=== PATIENT | female | born 1970 | race Caucasian/White ===

== ENCOUNTER 2020-02-17 12:41 | Emergency (ER) | payer OTHER, SELFPAY ==
[2020-02-17 12:54] VITALS: BP 139/87; PULSE 87; RESP 18; TEMP 36.8; O2SAT 100
--- NOTE | 2020-02-17 13:15 | ED.EXTPRO ---
HPI - Extremity Problem General Chief complaint: Extremity Problem,Nontraumatic Stated complaint: Right Hand Pain Time Seen by Provider: 02/17/20 13:09 Source: patient and RN notes reviewed Mode of arrival: ambulatory Limitations: no limitations History of Present Illness HPI Narrative: Patient presents today complaining of weakness to the right hand x3-4 days. States symptoms began upon awakening one morning. Reports it felt like pins and needles initially, but this sensation has since resolved. Reports she did have some neck pain when symptoms began, but this has since resolved. She denies any numbness or tingling in the arm or hand. Denies pain in the neck, arm, or hand. No pain with range of motion. She has tried no [id number] interventions prior to arrival. Denies injury or trauma. MD Complaint: other (Hand weakness) Related Data Allergies Allergy/AdvReac Type Severity Reaction Status Date / Time No Known Allergies Allergy Verified 02/17/20 12:58 Review of Systems Review of Systems: Narrative: CONSTITUTIONAL: Denies body aches, fever, chills, or sweats. EYES: Denies visual changes, redness, or discharge. ENT: Denies rhinorrhea, congestion, sore throat, or otalgia. CARDIOVASCULAR: Denies chest pain, palpitations, or edema. RESPIRATORY: Denies cough or dyspnea. GASTROINTESTINAL: Denies abdominal pain, nausea, vomiting, or diarrhea. GENITOURINARY: Denies dysuria or hematuria. SKIN: Denies rash, itching, or wounds. MUSCULOSKELETAL: Denies back pain, joint pain, or myalgia.+ Right hand weakness NEUROLOGIC: Denies headache, numbness, tingling, dizziness, or lightheadedness. PSYCH: Denies depression or anxiety. [facility] Family History Family History (Updated 01/22/16 @ 23:19 by DOCTOR UNKNOWN) Mother Family history of mental disorder Hypertension Family history of malignant neoplasm of cervix Family history of malignant neoplasm of breast in first degree relative Sibling Hypertension Family history of malignant neoplasm of breast in first degree relative Father Family history of diabetes mellitus in first degree relative Family history of coronary artery disease Social History Social History Smoking status: Never smoker Alcohol intake: current Gender identity (if verbalized by the patient): Female Comments At time of signature, I have reviewed and agree with nursing past medical, surgical, social and family history unless otherwise noted. Please see nursing chart for further information. There is no relevant family history pertinent to the presenting complaint Exam Narrative: Exam Narrative: GENERAL: Well-appearing, well-nourished, and in no acute distress. HEAD: Normocephalic, atraumatic. EYES: EOMI. No redness or drainage. Conjunctivae normal. ENT: Mucous membranes pink and moist. Tongue and lips symmetrical. Eyebrows symmetrical. NECK: Normal AROM. Supple. No lymphadenopathy. Neck is nontender. Chin to chest normal. CHEST: No respiratory distress. Clear to auscultation. HEART: Regular rate and rhythm. No murmur appreciated. Normal peripheral pulses. ABDOMEN: Soft, nontender, nondistended, normal active bowel sounds. MUSCULOSKELETAL: No bony tenderness. EXTREMITIES: Normal AROM and strength of bilateral shoulders, elbows, and wrists are normal. 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 Distal sensation intact. Capillary refill normal. Radial pulses normal. Color normal. SKIN: Warm, dry, no rash. Capillary refill normal. Normal skin turgor. NEURO: Alert and oriented x3. Gait steady. No facial droop. No pronator drift. PSYCH: Normal affect. No signs of depression or anxiety. Course Vital Signs Vital signs: Vital Signs Temperature 98.3 F 02/17/20 12:54 Pulse Rate 87 02/17/20 12:54 Respiratory Rate 18 02/17/20 12:54 Blood Pressure 139/87 02/17/20 12:54 Pulse Oximetry 100 02/17/20 12:54 Temperature 98.3 F 02/17/20 12:54 Pulse Rate
== END 2020-02-17 13:20 | disposition home or self-care (01) ==
PROVIDERS: Emergency Provider Nurse Practitioner
DX: M54.12 Radiculopathy, cervical region (principal)
CPT/HCPCS: 99203; G0463

== ENCOUNTER 2024-05-09 22:37 | Emergency (ER) | payer OTHER, SELFPAY ==
[2024-05-09 22:40] VITALS: BP 173/103; PULSE 80; RESP 18; TEMP 36.1; O2SAT 100
--- NOTE | 2024-05-09 22:45 | ED.GENADULT ---
HPI - General Adult General Chief complaint: Unspecified Stated complaint: elevated blood pressure Time Seen by Provider: 05/09/24 22:40 Source: patient Mode of arrival: ambulatory Limitations: no limitations History of Present Illness HPI narrative: this is a 53-year-old female that presents with elevated blood pressure. Patient is new to the area and has not established with a primary. Patient went to her dentist to have some dental work performed but her blood pressure was elevated and the dentist told her that he would be able to do any dental work to her blood pressure is under control. Patient currently has no symptoms no chest pain no shortness of breath no nausea vomiting. Onset (ago): day(s) Related Data Allergies Allergy/AdvReac Type Severity Reaction Status Date / Time No Known Allergies Allergy Verified 12/24/20 10:31 Review of Systems Review of Systems: All systems reviewed & are unremarkable except as noted in HPI and below PMFSH Past Medical History Medical History Patient denies medical problems Family History Family History Mother Family history of mental disorder Hypertension Family history of malignant neoplasm of cervix Family history of malignant neoplasm of breast in first degree relative Sibling Hypertension Family history of malignant neoplasm of breast in first degree relative Father Family history of diabetes mellitus in first degree relative Family history of coronary artery disease Mother Family history of bipolar disorder Hypertension Father Hypertension Family history of diabetes mellitus in first degree relative Family history of heart disease in male family member before age 55 Other Family history of malignant neoplasm of male breast Family history of thyroid disease Social History Social History Smoking status: Never smoker Alcohol intake: current Gender identity (if verbalized by the patient): Female Exam Const: General: cooperative, healthy appearing, comfortable, no acute distress and well developed HENMT: Head: normal to inspection Chest: Chest palpation & inspection: normal inspection of the chest and normal palpation of entire chest wall Resp: Effort & Inspection: normal respiratory effort and able to speak in complete sentences Auscultation: clear to auscultation bilaterally Cardio: Jugular venous distension: no JVD Palpation: normal PMI Rate: regular rate Rhythm: regular rhythm Heart sounds: S1 normal heart sound present and S2 normal heart sound present GI: Inspection: normal to inspection Back/Spine/Pelvis: Back: no CVA tenderness Neuro: General: oriented to person, oriented to place, oriented to time and patient oriented x3 Course Course Emergency Course: patient blood pressure elevated at 173/103 with a heart rate of 80 will administer a dose of 50mg p.o. metoprolol. Vital Signs Vital signs: Vital Signs Temperature 36.1 C L 05/09/24 22:40 Pulse Rate 80 05/09/24 22:40 Respiratory Rate 18 05/09/24 22:40 Blood Pressure 173/103 H 05/09/24 22:40 Pulse Oximetry 100 05/09/24 22:40 Oxygen Delivery Room Air 05/09/24 22:40 Temperature 36.1 C L 05/09/24 22:40 Pulse Rate 80 05/09/24 22:40 Respiratory Rate 18 05/09/24 22:40 Blood Pressure 173/103 H 05/09/24 22:40 Pulse Oximetry 100 05/09/24 22:40 Oxygen Delivery Room Air 05/09/24 22:40 Medical Decision Making Vital Signs Vital Signs: Vital Signs Temperature 36.1 C L 05/09/24 22:40 Pulse Rate 80 05/09/24 22:40 Respiratory Rate 18 05/09/24 22:40 Blood Pressure 173/103 H 05/09/24 22:40 Pulse Oximetry 100 05/09/24 22:40 Oxygen Delivery Room Air 05/09/24 22:40 Temperature 36.1 C L 05/09/24 22:40 Pulse Rate 80 05/09/24 22:40 Respiratory Rate 18 05/09/24 22:40 Blood Pressure 173/103 H 05/09/24 22:40 Pulse Oximetry 100 05/09/24 22:40 Oxygen Delivery Room Air 05/09/24 22:40 Critical Care Time Critical Care Time Critical Care Time: No Discharge Plan Discharge Clinical Impression: Hypertension Patient Disposition: Home, Self-Care Condition: Stable Instructions: Antibiotic Form, Hypertension (ED) Additional Instructions: advised to take medication as prescribed and follow with primary for further evaluation and treatment. Prescriptions: New losartan-hydrochlorothiazide 50-12.5 mg tablet 1 tablet PO DAILY Qty: 14 0RF Follow-up/Referrals: UNKNOWN,DOCTOR [Primary Care Provider] - Time of Disposition: 22:49
[2024-05-09 22:54] VITALS: PULSE 80
[2024-05-09] MEDS: METOPROLOL TARTRATE 50 MG TAB PO (22:54)
[2024-05-09 23:18] VITALS: BP 157/119; PULSE 69
--- NOTE | 2024-05-09 23:19 | PC.NURSE ---
ER Provider aware of blood pressure. medicated per MAR. continue with discharge
== END 2024-05-09 23:19 | disposition home or self-care (01) ==
LOC: CHSED 22:51
PROVIDERS: Emergency Provider Emergency Medicine
DX: I10 Essential (primary) hypertension (principal)
CPT/HCPCS: 99283; A9270